=== PATIENT | male | born 1940 | race Caucasian/White ===

== ENCOUNTER → 2016-07-11 | Outpatient (CLI) | payer OTHER ==
[~2016-07-11] MED LIST: ACET-1138 PO; AMLO2.5T PO; ASCA500 PO; ASPEC81 PO; ATOR-24 PO; CHOL100010 PO; CLB200 PO; CLC100 PO; FERR1TAB61 PO; GLUC1CAP33 PO; GLUCTAB7 PO; HYDR-5688 PO; NXM/40 PO; OMEG10007 PO; OXYSR10 PO; POTA1TAB PO; RAMI10CA PO; RXC5 PO; SENN-63 PO; SIMV40TA4 PO
== END | disposition home or self-care (01) ==
LOC: C.PATHSPEC 17:33
PROVIDERS: ATTEND Plastic Surgery
DX: B07.9 Viral wart, unspecified (principal)

== ENCOUNTER 2016-07-18 06:14 | Inpatient (IN) | payer OTHER ==
--- NOTE | 2016-07-17 08:27 | History and Physical ---
History & Physical Date Jul 17, 2016. Chief Complaint Right Knee Pain History of Present Illness Mr Abel is a 75 year old male who complains of right knee pain. He presents with pain on the right side. He states that the symptoms have been acute non- traumatic and began 2 months ago. The symptoms occur intermittently. The problem is unchanged. Currently the patient states that the symptoms are moderate-severe. The pain is described as sharp and shooting. The symptoms occur with mild activity. The patient is experiencing pain in the following location: medial aspect on the right side. The symptoms are aggravated by descending stairs, ascending stairs and walking. In addition to right knee pain the patient is also experiencing limping. Patient had cortisone injection last month that didn't help. Past Medical/Surgical History PAST MEDICAL HISTORY Hypertension GERD h/o skin cancer SURGICAL HISTORY Prostate Surgery knee arthroscopy Additional History Kidney Disease: No Hypertension: Yes Bleeding Tendencies: No Infectious Diseases: No Allergies Coded Allergies: Lisinopril (Unverified Allergy, Unknown, per PCP records , 02/01/16) Moxifloxacin (Unverified Allergy, Unknown, per PCP records , 02/01/16) Valsartan (Unverified Allergy, Unknown, per PCP records , 02/01/16) Home Medications Scheduled Amlodipine (Norvasc), 2.5 MG PO QAM Ascorbic Acid (Vitamin C *), 1,000 MG PO QAM Cholecalciferol (Vitamin D), 1,000 INTER.UNIT PO QAM Esomeprazole Magnesium (Nexium), 40 MG PO QAM Ferrous Sulfate (Iron), 1 TAB PO QAM Fish Oil ([place]-3), 2 CAP PO QAM Potassium Gluconate (Potassium Gluconate), 1 TAB PO QAM Ramipril (Ramipril), 1 CAP PO QAM Simvastatin (Zocor), 40 MG PO QPM Scheduled PRN Hydrocodone/Acetaminophen 5MG/325MG ([place] 5MG/325MG), 1-2 TABLETS PO q4-6 hours PRN for Pain Physical Examination Skin: warm/dry, no rash Eyes: normal inspection, EOMI, sclerae normal ENT: normal ENT inspection, pharynx normal Neck: supple, no adenopathy, trachea midline Respiratory/Chest: lungs clear, normal breath sounds, no respiratory distress Cardiovascular: regular rate, rhythm, no edema, no murmur Abdomen / GI: normal bowel sounds, non tender Addiitonal Comments: Ankle ROM R * Active ROM - Factors: normal, Description: active pain free range of motion. Passive ROM - Factors: normal, Description: passive pain free range of motion. Hip ROM R * Active ROM - Factors: normal, Description: active pain free range of motion. Passive ROM - Factors: normal, Description: passive pain free range of motion. Knee ROM R * Active ROM - Flexion: 100 degrees, Extension: 5 degrees, Factors: pain, Description: Active painful ROM. Strength LE Normal Strength Description - Normal lower extremity: Bilateral. Knee * Inspection - Gait: Limp. Alignment - Right: neutral. Ecchymosis - Right: negative. Effusion - Right: mild. Swelling - Right: mild. Maximum tenderness - Right: Medial Joint Line. Patella exam - Crepitation - Right: mild. Patella position - Right: neutral. [facility]'s - lateral - Right: Positive. [facility]'s - medial - Right: Positive. Knee Normal Inspection - Atrophy - Right: Absent. Skin - Right: Normal. Patella exam - Apprehension - Right: Negative. Q-angle - Right: Normal. Posterior drawer - Right: Negative. Anterior drawer - Right: Negative. Valgus stress - Right: Negative. Varus stress - Right: Negative. Extensor lag - Right: Normal. Neurovascular LE Normal Neurovascular examination including reflexes, sensation , and pulses is within normal limits. RIGHT KNEE XRAYS Xrays reviewed of the right knee showing findings consistent with degenerative joint disease including joint space narrowing, subchondral sclerosis and peripheral osteophyte formation. no acute bony pathology, overall varus alignment. Impression: degenerative joint disease of the right knee with no acute bony pathology noted. Diagnosis 1. Right knee osteoarthritis 2. Hypertension 3. h/o skin cancer Plan of Treatment Further care discussed with patient and at this point in time has failed conservative measures and would like to proceed with a right total knee replacement. Plan on discharge will be home with home physical therapy. DVT prophalaxis with TEDs, SCDs and will also place on aspirin 81 mg p.o. b.i.d. for a month postop. Patient will have follow up appointment in our office two weeks post op for staple/suture removal and re-evaluation. Patient otherwise has no other questions or concerns.
[2016-07-17 08:33] VITALS: BMI 28.0
--- NOTE | 2016-07-17 08:58 | PAT Medication Instructions ---
Service Date Jul 17, 2016. Current Home Medication List Amlodipine (Norvasc), 2.5 MG PO QAM Ascorbic Acid (Vitamin C *), 500 MG PO BID Atorvastatin (Lipitor), 40 MG PO NOON Cholecalciferol (Vitamin D), 1,000 INTER.UNIT PO QAM Esomeprazole Magnesium (Nexium), 40 MG PO QAM Fish Oil ([place]-3), 1 CAP PO QAM Glucosamine-Chondroitin (Glucosamine & Chondroitin 500-400 mg), 1 TAB PO QPM Ranfnaceawq-Iseqnlpjzqa-Tfy C- (Glucosamine Chondroitin), 2 TAB PO QAM Potassium Gluconate (Potassium Gluconate), 1 TAB PO QAM Ramipril (Ramipril), 1 CAP PO QAM Medication Instructions For Your Scheduled Surgery Atorvastatin (Lipitor), 40 MG PO NOON (continue as usual) - Hold the following medications the morning of surgery: Ramipril (Ramipril), 1 CAP PO QAM Potassium Gluconate (Potassium Gluconate), 1 TAB PO QAM Cholecalciferol (Vitamin D), 1,000 INTER.UNIT PO QAM Ascorbic Acid (Vitamin C *), 500 MG PO BID Fish Oil ([place]idge-3), 1 CAP PO QAM Vksumiojdlu-Iydzvxggsly-Wsc C- (Glucosamine Chondroitin), 2 TAB PO QAM - Take the following medications the morning of surgery with a sip of water: Esomeprazole Magnesium (Nexium), 40 MG PO QAM Amlodipine (Norvasc), 2.5 MG PO QAM - Hold the following medications as scheduled the night before surgery: Glucosamine-Chondroitin (Glucosamine & Chondroitin 500-400 mg), 1 TAB PO QPM - Take the following medications as scheduled the night before surgery: Ascorbic Acid (Vitamin C *), 500 MG PO BID If you have any questions please call us at [phone] (Mckenna May PA-C) or [phone] or [phone]
[2016-07-17 09:03] LABS: URINE APPEARANCE CLEAR (CLEAR); URINE BILIRUBIN NEG (NEG); URINE COLOR YELLOW; URINE NITRITE NEG (NEG); URINE SPECIFIC GRAVITY 1.016 (1.000-1.030); UROBILINOGEN NEG (NEG)
[2016-07-17 09:07] LABS: PROTHROMBIN TIME (PATIENT) 11.1 SECONDS (9.0-12.0)
[2016-07-17 09:09] LABS: BASO % 0.3 %; BASO ABS # 0.03 K/uL (0-0.2); COMPLETE YES; EOS % 2.6 %; HEMATOCRIT 47.7 % (42-52); IG% 0.2 %; LYMPH % 27.8 %; LYMPH ABS # 2.45 K/uL (1.2-3.4); MEAN CELL VOLUME 90.3 fL (80-100); MEAN CORPUSCULAR HEMOGLOBIN 31.3 pg (25-34); MEAN CORPUSCULAR HGB CONC 34.6 g/dl (32-36); MEAN PLATELET VOLUME 10.2 fL (7.4-10.4); MONO % 9.3 %; NEUT % 59.8 %; PLATELET COUNT 281 K/uL (130-400); RED BLOOD COUNT 5.28 M/uL (4.7-6.1); WHITE BLOOD COUNT 8.81 K/uL (4.8-10.8)
[2016-07-17 09:10] LABS: MANUAL MICROSCOPIC REQUIRED? NO; REVIEW REQ? NO
--- NOTE | 2016-07-17 09:21 | DIAGNOSTIC IMAGING REPORT ---
CHEST 2 VIEWS ROUTINE HISTORY: Preop. COMPARISON: Chest 05/25/2010. FINDINGS: The lungs are clear. Cardiac silhouette is normal in size. No pleural effusions. No pneumothorax. IMPRESSION: No acute process. Electronically signed by: Lorenzo Cortez M.D. 07/17/2016 9:20 AM Dictated Date/Time: 07/17/2016 9:17 AM
[2016-07-17 09:37] LABS: BUN/CREATININE RATIO 17.5 (10-20); CALCIUM 8.8 mg/dl (8.5-10.1); CREATININE 0.93 mg/dl (0.60-1.40); POTASSIUM 3.9 mmol/L (3.5-5.1)
[2016-07-17 09:39] LABS: ESTIMATED AVERAGE GLUCOSE 114 mg/dl; HA1C FLAG Normal (Normal)
[2016-07-18] VITALS (7 sets, daily range): BP systolic 114–159; BP diastolic 67–76; PULSE 79–98; TEMP 36.3–36.7; O2SAT 96–99; Ht 180.3 cm; Wt 93.0 kg
[~2016-07-18] VITALS: Ht 180.3 cm; Wt 93.0 kg
[~2016-07-18 06:14] MED LIST changes: -ACET-1138 PO; -ASPEC81 PO; -CLB200 PO; -CLC100 PO; -FERR1TAB61 PO; -HYDR-5688 PO; +LACTATED RINGER'S 1000ML 1,000 ML IV SCH; +LACTATED RINGER'S 1000ML 500 ML IV ONE; -OXYSR10 PO; +ROPIVACAINE 5MG/ML 30 ML 150 MG, BUPIVACAINE/EPINEPHR 0.5% MPF 30 ML, KETOROLAC TROMETH... INFIL SCH; -RXC5 PO; -SENN-63 PO; -SIMV40TA4 PO
[2016-07-18] MEDS ORDERED: NURSING VERBAL MED ORDER STA ×2 (06:47→06:57)
[2016-07-18] MEDS ORDERED: POVIDONE-IODINE OP SOLN 30 ML BTL ONE (06:51)
[2016-07-18] MEDS ORDERED: BACITRACIN 50000 UNIT VIAL ONE (06:51)
[2016-07-18] MEDS ORDERED: MIDAZOLAM HCL 1 MG/ML 2ML VIAL ONE ×2 (07:00)
[2016-07-18] MEDS ORDERED: FENTANYL CITRATE INJ 50 MCG/1 ML 2 ML VIAL ONE (07:00)
--- NOTE | 2016-07-18 07:14 | History & Physical Bridge Note ---
H&P Re-Evaluation Bridge Note: I have examined the patient, reviewed the History & Physical and in the interval since the performance of the History & Physical I have noted the following changes of clinical significance: No changes noted
[2016-07-18] MEDS ORDERED: BUPIVACAINE/EPINEPHRINE 0.25% 1:200,000 30 ML VIAL ONE (07:24)
[2016-07-18] MEDS ORDERED: BUPIVACAINE 0.5 % 5 MG/1 ML PF 10ML VIAL ONE (07:24)
[2016-07-18] MEDS ORDERED: DEXAMETHASONE SOD INJ 4 MG/ML VIAL ONE (07:25)
[2016-07-18] MEDS: TRANEXAMIC ACID INJ 1,000 MG in SODIUM CHLORIDE 0.9% 100ML 100 ML IV SCH ×2 (07:30→07:43)
[2016-07-18] MEDS ORDERED: CEFAZOLIN IV 2,000 MG/60 ML D5W IV ONE (07:32)
[2016-07-18] MEDS ORDERED: PROPOFOL IV EMULSION 10 MG/ML 20 ML VIAL IV ONE (08:38)
[2016-07-18] MEDS ORDERED: LIDOCAINE HCL 2% 2 ML VIAL (20MG/ML) ONE (08:38)
[2016-07-18] MEDS ORDERED: METOPROLOL TARTRATE 1 MG/ML VIAL ONE (08:38)
[2016-07-18] MEDS ORDERED: PHENYLEPHRINE 100MCG/ML 5ML SYR ONE (08:39)
--- NOTE | 2016-07-18 09:38 | [facility] Post Operative Brief Note ---
Immediate Operative Summary Operative Date Jul 18, 2016. Pre-Operative Diagnosis Right knee osteoarthritis Post-Operative Diagnosis Same as preop Procedure(s) Performed Right total knee arthroplasty Surgeon Dr. Hernandes Industrial Radiographer Surgeon(s) Nathan Zaldivar PA-C Estimated Blood Loss 10 cc Findings severe djd rt knee Specimens A: right knee bone and tissue Complication(s) None Disposition Recovery Room / PACU
[2016-07-18] MEDS ORDERED: FENTANYL CITRATE INJ 50 MCG/1 ML 2 ML VIAL IV PRN (10:00)
[2016-07-18] MEDS ORDERED: ONDANSETRON INJ 2 MG/ML 2 ML VIAL IV PRN ×2 (10:00→10:15)
[2016-07-18] MEDS ORDERED: ATROPINE SULFATE 0.1 MG/ML 5ML SYR IV PRN (10:00)
[2016-07-18] MEDS ORDERED: EpHEDrine SULFATE INJ 50 MG/ML AMP IV PRN (10:00)
[2016-07-18] MEDS ORDERED: MoRPHine SULFATE 2 MG/ML CARP IV PRN (10:15)
[2016-07-18] MEDS ORDERED: ALUMINUM/MAGNESIUM/SIMETH (MAALOX MAX) 30 ML UDC PO PRN (10:15)
[2016-07-18] MEDS ORDERED: DiphenhydrAMINE HCL 50 MG/ML VIAL IV PRN (10:15)
[2016-07-18] MEDS ORDERED: BISACODYL 10 MG SUPP PR PRN (10:15)
[2016-07-18] MEDS ORDERED: ZOLPIDEM TARTRATE 5 MG TAB PO PRN (10:15)
[2016-07-18] MEDS ORDERED: MAGNESIUM HYDROXIDE SUSP 30 ML UDC PO PRN (10:15)
[2016-07-18] MEDS ORDERED: TAMSULOSIN HCL 0.4 MG CAP PO PRN (10:15)
--- NOTE | 2016-07-18 10:46 | OPERATIVE REPORT ---
DATE OF OPERATION: 07/18/2016 PREOPERATIVE DIAGNOSIS: Severe end-stage tricompartmental degenerative joint disease, right knee. POSTOPERATIVE DIAGNOSIS: Same. PROCEDURE: Right total knee arthroplasty using Journey II nonblock total knee arthroplasty size 6 femur, 5 tibia, 11 poly, and 35 oval patella. SURGEON: Dr. Hernandes. DISTRICT GAUGER: Chidi Zaldivar PA-C, who was necessary for prepping, draping, retraction, wound closure of deep fascia, subQ and skin and was necessary for the case. ESTIMATED BLOOD LOSS: 10 mL. COMPLICATIONS: None. TOURNIQUET TIME: 40 minutes. HISTORY OF PRESENT ILLNESS: The patient is a very pleasant 75-year-old white male who presents with severe endstage DJD about his right knee. He has been nonresponsive to conservative therapy including physical therapy, anti-inflammatories, relative rest, activity modification, viscosupplementation, corticosteroid injections and presents after thorough discussion of risks, complications for total knee arthroplasty. PROCEDURE: The patient was properly prepped and draped in supine position for total knee arthroplasty after identifying the appropriate surgical site. An anterior midline incision was made through the subcutaneous tissues down to the region of the extensor mechanism. A medial parapatellar incision was subsequently made. Meticulous hemostasis was obtained and performed at all times. The patella having been subluxed lateralward, medial and lateral meniscal remnants were excised. The patellar cut was then initially made and was sized to the appropriate size. After subluxing the tibia forward the appropriate meniscal fragments having been removed the distal femur was then cut first utilizing a Dong \T\ Nephew block. The distal femoral cuts and chamfer cuts were all made under direct visualization and the proximal tibial osteotomy cut was also made utilizing Dong \T\ Nephew blocks and checked with an extramedullary guide. The appropriate trial components on the femur and tibia were placed. Appropriate trial spacers were used to check flexion and extension gaps. With flexion and extension gaps being equal, the components were then subsequently after thorough irrigation and debridement lavage components were then subsequently cemented in the following order: femur, tibia and patella. Exparel was used for intraoperative anesthesia, the medial parapatellar incision was closed utilizing #1 Vicryl, subQ was closed with 2-0 Vicryl, skin was closed with skin clips. A sterile compression dressing was placed. The patient was taken to recovery room in stable condition. Due to the complex nature of the procedure, the entire surgery was performed with the operational assistance of Chidi Zaldivar PA-C. The life science research assistant, under direct supervision, was involved in the actual performance of all aspects of the surgical procedure including hemostasis, tissue retraction and incision, instrument management, patient positioning, and wound closure. I attest to the content of the Intraoperative Record and any orders documented therein. Any exceptio ns are noted below.
--- NOTE | 2016-07-18 11:19 | DIAGNOSTIC IMAGING REPORT ---
RIGHT KNEE 1 OR 2 VIEWS ROUTINE CLINICAL HISTORY: AP/LATERAL IN PACU RIGHT KNEE Right joint replacement COMPARISON: None. DISCUSSION: Evidence for a total right knee replacement. Good contact between prosthetic and underlying bone. Surgical drains are in position. Expected postoperative soft tissue change IMPRESSION: Total right knee replacement in good position Electronically signed by: Shar Snow M.D. 07/18/2016 11:18 AM Dictated Date/Time: 07/18/2016 11:17 AM
--- NOTE | 2016-07-18 11:31 | Anesthesiology Progress Note ---
Anesthesia Post Op Note Date & Time Jul 18, 2016 at 11:31 Vital Signs Pain Intensity: 0 Vital Signs Past 12 Hours Date Time Temp Pulse Resp B/P Pulse Ox O2 Delivery O2 Flow Rate FiO2 07/18/16 11:10 36.5 92 16 131/70 98 Nasal Cannula 3 07/18/16 10:55 36.5 90 16 123/67 98 Nasal Cannula 3 07/18/16 10:40 36.5 91 16 130/75 97 Nasal Cannula 3 07/18/16 10:30 90 16 122/67 97 Nasal Cannula 3 07/18/16 10:20 93 16 114/66 97 Nasal Cannula 3 07/18/16 10:10 36.3 96 16 100/58 96 Nasal Cannula 3 07/18/16 06:59 36.7 94 20 155/69 98 Room Air Notes Mental Status: alert / awake / arousable, participated in evaluation Pt Amnestic to Procedure: Yes Nausea / Vomiting: adequately controlled Pain: adequately controlled Airway Patency, RR, SpO2: stable & adequate BP & HR: stable & adequate Hydration State: stable & adequate Neuraxial Anesthesia: was administered, sensory block is resolving Anesthetic Complications: no major complications apparent
[2016-07-18] MEDS ORDERED: MoRPHine SULFATE 4 MG/ML 1 ML CARP\\VIAL IV PRN (12:00)
[2016-07-18] MEDS ORDERED: MoRPHine SULFATE 10 MG/ML CARP/VIAL IV PRN (12:00)
--- NOTE | 2016-07-18 12:49 | Medical Consult ---
Consultation Date of Consultation: Jul 18, 2016. Attending Physician: Marck Hernandes D.O. Reason for Consultation: Medical management History of Present Illness This is a 75 yo M with PMHx of HTN admitted for R total knee arthroplasty completed by Dr. Hernandes on 07/18/16. Medicine was consulted for management of comorbidities. The patient is in bed with at bedside, he denies acute complaints and reports pain is well managed. He still has some numbness in his left foot but states it is improving. Last BM was yesterday, reports not yet passing gas, is hungry. Denies chest pain, palpitations, flutter, sob, abd pain , lightheadedness or dizziness. Social History Smoking Status: Never Smoker Drug Use: none Marital Status: Housing Status: lives with family Occupation Status: retired Allergies Coded Allergies: Lisinopril (Verified Allergy, Unknown, per PCP records-pt not aware, ) Moxifloxacin (Verified Allergy, Unknown, per PCP records -pt not aware, ) Valsartan (Verified Allergy, Unknown, per PCP records -pt not aware, ) Current Inpatient Medications Current Inpatient Medications Medications (Trade) Dose Ordered Sig/Ced Route Start Time Stop Time Status Last Admin Dose Admin Tranexamic Acid 1000 mg/Sodium Chloride 110 ml @ 660 mls/hr TODAY@0700,0730 IV 07/18/16 07:00 07/18/16 14:00 07/18/16 07:43 660 MLS/HR Ropivacaine/ Bupivacaine HCl/ Epinephrine Bitart/Ketorolac Tromethamine/ Dexamethasone Sodium Phosphate/ Ketamine HCl/ Clonidine/Sodium Chloride/Empty Bag (Naropin Inj 5MG/ Ml 30ML/ Sensorcaine/ Epinephrine 0.5% Mpf 1:200,000/ Toradol Inj/ Decadron Inj/ Ketalar Steri-Vial I... 93.2 ml @ 0 mls/hr TODAY@06 INFIL 07/18/16 06:00 07/18/16 18:00 07/18/16 09:00 1 MLS/HR Fentanyl Citrate (Fentanyl Inj) 50 mcg Q5M PRN IV 07/18/16 10:00 07/18/16 15:00 Ondansetron HCl (Zofran Inj) 4 mg ONE PRN IV 07/18/16 10:00 07/18/16 15:00 Ephedrine Sulfate (EpHEDrine SULFATE INJ) 5 mg Q5M PRN IV 07/18/16 10:00 07/18/16 15:00 Atropine Sulfate (Atropine Sulfate 0.1MG/Ml Inj) 0.5 mg Q1M PRN IV 07/18/16 10:00 07/18/16 15:00 Amlodipine Besylate (Norvasc Tab) 2.5 mg QAM PO 07/19/16 09:00 08/18/16 08:59 Atorvastatin Calcium (Lipitor Tab) 40 mg QAM PO 07/19/16 09:00 08/18/16 08:59 Cholecalciferol (Vitamin D Tab) 1,000 inter.unit QAM PO 07/19/16 09:00 08/18/16 08:59 Enalapril Maleate (Vasotec Tab) 40 mg QAM PO 07/19/16 09:00 08/18/16 08:59 Morphine Sulfate 2 mg 2 mg Q4HWA PRN IV 07/18/16 10:15 08/01/16 10:14 Potassium Chloride/Dextrose/ Sod Cl 1,000 ml @ 100 mls/hr Q10H IV 07/18/16 12:15 07/19/16 10:10 Cefazolin Sodium/ Dextrose (Ancef Iv/D5 50ml) 60 ml @ 100 mls/hr Q8H IV 07/18/16 16:00 07/19/16 00:35 Ketorolac Tromethamine (Toradol Inj) 15 mg Q6H IV. 07/18/16 12:00 07/19/16 10:14 Celecoxib (CeleBREX CAP) 200 mg BID PO 07/19/16 21:00 08/18/16 20:59 Oxycodone HCl (Roxicodone Immediate Rel Tab) 1 TABLET FOR PAIN RATING... Q4H PRN PO 07/18/16 10:15 08/01/16 10:14 Oxycodone HCl (Oxycontin Tab) 10 mg Q12 PO 07/18/16 21:00 08/01/16 20:59 Acetaminophen (Tylenol Tab) 1,000 mg Q8H PO 07/18/16 14:00 08/17/16 10:14 Magnesium Hydroxide (Milk Of Magnesia Susp) 30 ml Q6H PRN PO 07/18/16 10:15 08/17/16 10:14 Bisacodyl (Dulcolax Supp) 10 mg DAILY PRN AK 07/18/16 10:15 08/17/16 10:14 Senna (Senokot Tab) 17.2 mg HS PO 07/18/16 21:00 08/17/16 20:59 Docusate Sodium (coLACE CAP) 100 mg BID PO 07/18/16 21:00 08/17/16 20:59 Diphenhydramine HCl (Benadryl Inj) 25 mg Q8H PRN IV 07/18/16 10:15 08/17/16 10:14 Al Hydrox/Mg Hydrox/Simethicone (Maalox Max Susp) 15 ml Q4H PRN PO 07/18/16 10:15 08/17/16 10:14 Zolpidem Tartrate (Ambien Tab) 5 mg HSZ PRN PO 07/18/16 10:15 08/17/16 10:14 Multivitamins (Multivitamin Tab) 1 tab QAM PO 07/19/16 09:00 08/18/16 08:59 Ondansetron HCl (Zofran Inj) 4 mg Q6H PRN IV 07/18/16 10:15 08/17/16 10:14 Ferrous Gluconate (Ferrous Gluconate Tab) 324 mg TIDM PO 07/18/16 12:30 08/17/16 12:29 Pantoprazole Sodium (Protonix Tab) 40 mg QAM PO 07/19/16 09:00 08/18/16 08:59 Tamsulosin HCl (Flomax Cap) 0.4 mg QAM PRN PO 07/18/16 10:15 08/17/16 10:14 Aspirin (Ecotrin Tab) 81 mg BID PO 07/18/16 21:00 08/17/16 20:59 Morphine Sulfate (MoRPHine SULFATE INJ) 4 mg Q4HWA PRN IV 07/18/16 12:00 08/01/16 11:59 Morphine Sulfate (MoRPHine SULFATE INJ) 6 mg Q4HWA PRN IV 07/18/16 12:00 08/01/16 11:59 Review of Systems Constitutional: No chills, No fever, No sweats Eyes: No discharge ENT: No problem reported Respiratory: No cough, No dyspnea on exertion, No shortness of breath Cardiovascular: No chest pain, No palpitations Abdomen: No constipation, No diarrhea, No nausea, No pain, No vomiting Musculoskeletal: No calf pain, No joint pain, No swelling Genitourinary - Male: No dysuria Neurologic: + numbness/tingling (minimal left toes) Endocrine: No fatigue Integumentary: No itch, No rash Physical Exam Date Time Temp Pulse Resp B/P Pulse Ox O2 Delivery O2 Flow Rate FiO2 07/18/16 11:50 98 Nasal Cannula 2.0 07/18/16 11:10 36.5 92 16 131/70 98 Nasal Cannula 3 07/18/16 10:55 36.5 90 16 123/67 98 Nasal Cannula 3 07/18/16 10:40 36.5 91 16 130/75 97 Nasal Cannula 3 07/18/16 10:30 90 16 122/67 97 Nasal Cannula 3 07/18/16 10:20 93 16 114/66 97 Nasal Cannula 3 07/18/16 10:20 98 Nasal Cannula 2.0 07/18/16 10:10 36.3 96 16 100/58 96 Nasal Cannula 3 07/18/16 06:59 36.7 94 20 155/69 98 Room Air General Appearance: WD/WN, no apparent distress Head: normocephalic, atraumatic Eyes: PERRL, EOMI ENT: hearing grossly normal, pharynx normal Neck: supple, no JVD Respiratory/Chest: chest non-tender, lungs clear, no respiratory distress, no accessory muscle use Cardiovascular: regular rate, rhythm, normal peripheral pulses Abdomen/GI: normal bowel sounds, non tender, soft Back: normal inspection, no CVA tenderness Extremities/Musculoskelatal: normal inspection, no calf tenderness, no pedal edema, + pertinent finding (Left leg wrapped with MELISA wrap, ice pack, elevated. ) Neurologic/Psych: alert, normal mood/affect, oriented x 3 Skin: normal color, warm/dry Laboratory Results Last 24 Hours Test 07/18/16 06:37 Bedside Glucose 117 mg/dl Assessment & Plan This is a 75 yo M with PMHx of HTN admitted for R total knee arthroplasty completed by Dr. Hernandes on 07/18/16. Medicine was consulted for management of comorbidities. S/p R TKA by Dr. Hernandes - Pain management, anticoagulation ( asa 81 mg BID) per the primary service - PT/OT on board - Elevate, ice, and rest for the left knee - Will continue bowel regimen while on narcotics for pain HTN - Cont amlodipine 2.5 mg daily, vasotec 40 mg daily, ramipril 10 mg daily GERD - Cont pantoprazole daily for now, takes nexium at home which we will resume upon discharge Hypercholesterolemia - Cont atorvastatin 40 mg daily DVT ppx: asa 81 mg BID, SCDs, teds on non-affected leg CODE STATUS: FULL CODE Disposition: From home, d/c when medically stable PA Physician Supervision Note: I interviewed and examined the patient. Discussed with Elisa Dutta PAC and agree with findings and plan as documented in the note. Any exceptions or clarifications are listed here: pt is not on both vasotec and ramipril, likely vasotec is pharmacy substitute for ramipril, both will be held post op day one Pt doing well pain control is acceptable vss car reg, lungs are clear hold melisa i post op to mitigate orthostatic hypotension using hydralazine for bp control prn Documented By: Marck Alston
[2016-07-18] MEDS: D5W AND 1/2NSS + 20MEQ KCL 1,000 ML IV SCH ×2 (12:52→21:48)
[2016-07-18] MEDS: KETOROLAC TROMETHAMINE 15 MG/ML VIAL IV. SCH ×3 (12:53→23:23)
[2016-07-18] MEDS: FERROUS GLUCONATE 324 MG TAB PO SCH ×2 (12:58→17:44)
[2016-07-18] MEDS: ACETAMINOPHEN 500 MG TAB PO SCH ×2 (13:50→21:48)
[2016-07-18] MEDS ORDERED: HydrALAZINE HCL 20 MG/ML VIAL IV PRN (15:30)
[2016-07-18] MEDS: CEFAZOLIN IV 2,000 MG in DEXTROSE 5% 50ML 50 ML IV SCH ×2 (15:53→23:22)
[2016-07-18] MEDS: DOCUSATE SODIUM 100 MG CAP PO SCH (20:51)
[2016-07-18] MEDS: ASPIRIN 81 MG ECTAB PO SCH (20:51)
[2016-07-18] MEDS: OXYCODONE HCL 10 MG TABCR (OXYCONTIN) PO SCH (20:51)
[2016-07-18] MEDS: SENNA 8.6 MG TAB PO SCH (20:51)
[2016-07-19 03:27] VITALS: BP 132/72; PULSE 88; TEMP 36.3; O2SAT 98
[2016-07-19] MEDS: KETOROLAC TROMETHAMINE 15 MG/ML VIAL IV. SCH (05:34)
[2016-07-19] MEDS: ACETAMINOPHEN 500 MG TAB PO SCH ×3 (05:37→22:04)
[2016-07-19 06:52] LABS: HEMATOCRIT 39.6 % (42-52); MEAN CELL VOLUME 88.2 fL (80-100); MEAN CORPUSCULAR HEMOGLOBIN 30.7 pg (25-34); MEAN CORPUSCULAR HGB CONC 34.8 g/dl (32-36); PLATELET COUNT 276 K/uL (130-400); RED BLOOD COUNT 4.49 M/uL (4.7-6.1); WHITE BLOOD COUNT 21.73 K/uL (4.8-10.8)
--- NOTE | 2016-07-19 06:53 | Orthopedic Progress Note ---
Orthopedic Progress Note Date of Service Jul 19, 2016. Subjective Post OP Day: 1 (right TKA) Reports: feeling well, pain controlled w PO medications, Denies: SOB, calf pain , chest pain, complaints, light headedness, nausea / vomiting Objective calves soft nontender, N/V intact, capillary refill less than 2 sec., dressing C /D/I, A&O x3, toes mobile, hemovac drainage (175cc/8 hours) Date Time Temp Pulse Resp B/P Pulse Ox O2 Delivery O2 Flow Rate FiO2 07/19/16 03:27 36.3 88 16 132/72 98 Room Air 07/18/16 23:50 36.6 93 16 115/67 97 Room Air 07/18/16 19:30 Room Air 07/18/16 15:38 36.3 79 16 119/68 96 Room Air 07/18/16 14:37 90 16 159/76 97 Room Air 07/18/16 12:20 87 16 114/72 99 2.0 07/18/16 11:50 36.4 86 16 114/72 99 2.0 07/18/16 11:50 98 Nasal Cannula 2.0 07/18/16 11:10 36.5 92 16 131/70 98 Nasal Cannula 3 07/18/16 10:55 36.5 90 16 123/67 98 Nasal Cannula 3 07/18/16 10:40 36.5 91 16 130/75 97 Nasal Cannula 3 07/18/16 10:30 90 16 122/67 97 Nasal Cannula 3 07/18/16 10:20 93 16 114/66 97 Nasal Cannula 3 07/18/16 10:20 98 Nasal Cannula 2.0 07/18/16 10:10 36.3 96 16 100/58 96 Nasal Cannula 3 07/18/16 06:59 36.7 94 20 155/69 98 Room Air Laboratory Results 24 Hours: Test 07/19/16 05:45 Assessment & Plan Assessment: POD #1 s/p Right TKA -PT/OT -dvt proph with JIM/SCD/ASA -plan for d/c home with Home PT, likely tomorrow Hypertension GERD h/o skin cancer Discharge Planning Discharge Planning: home with home health DVT Prophylaxis: TEDs, SCDs, ASA Therapy: Physical Therapy
[2016-07-19 07:25] LABS: BUN/CREATININE RATIO 16.6 (10-20); CALCIUM 8.4 mg/dl (8.5-10.1); POTASSIUM 3.9 mmol/L (3.5-5.1)
--- NOTE | 2016-07-19 07:48 | Anesthesiology Progress Note ---
Anesthesia Post Op Note Date & Time Jul 19, 2016 at 07:48 Vital Signs Pain Intensity: 0.0 Vital Signs Past 12 Hours Date Time Temp Pulse Resp B/P Pulse Ox O2 Delivery O2 Flow Rate FiO2 07/19/16 03:27 36.3 88 16 132/72 98 Room Air 07/18/16 23:50 36.6 93 16 115/67 97 Room Air Notes Mental Status: alert / awake / arousable, participated in evaluation Pt Amnestic to Procedure: Yes Nausea / Vomiting: adequately controlled Pain: adequately controlled Airway Patency, RR, SpO2: stable & adequate BP & HR: stable & adequate Hydration State: stable & adequate Neuraxial Anesthesia: sensory block resolved Anesthetic Complications: no major complications apparent
--- NOTE | 2016-07-19 07:50 | Hospitalist Progress Note ---
Hospitalist Progress Note Date of Service Jul 19, 2016. (Elisa Dutta PA-C) Subjective Pt evaluation today including: conversation w/ patient, conversation w/ family , physical exam, chart review, lab review, review of studies, review of inpatient medication list Pain: Mild PO Intake: Good Voiding: no voiding problems The patient was seen and examined this morning. Pt reports doing well, he was up walking several laps with PT this morning. OT is at bedside. He is tolerating diet, had a BM this morning. No other acute complaints. All Other Systems: Reviewed and Negative (Elisa Dutta PA-C) Objective Vital Signs Date Time Temp Pulse Resp B/P Pulse Ox O2 Delivery O2 Flow Rate FiO2 07/19/16 03:27 36.3 88 16 132/72 98 Room Air 07/18/16 23:50 36.6 93 16 115/67 97 Room Air 07/18/16 19:30 Room Air 07/18/16 15:38 36.3 79 16 119/68 96 Room Air 07/18/16 14:37 90 16 159/76 97 Room Air 07/18/16 12:20 87 16 114/72 99 2.0 07/18/16 11:50 36.4 86 16 114/72 99 2.0 07/18/16 11:50 98 Nasal Cannula 2.0 07/18/16 11:10 36.5 92 16 131/70 98 Nasal Cannula 3 07/18/16 10:55 36.5 90 16 123/67 98 Nasal Cannula 3 07/18/16 10:40 36.5 91 16 130/75 97 Nasal Cannula 3 07/18/16 10:30 90 16 122/67 97 Nasal Cannula 3 07/18/16 10:20 93 16 114/66 97 Nasal Cannula 3 07/18/16 10:20 98 Nasal Cannula 2.0 07/18/16 10:10 36.3 96 16 100/58 96 Nasal Cannula 3 (Elisa Dutta PA-C) Physical Exam General Appearance: WD/WN, no apparent distress Eyes: PERRL, EOMI ENT: hearing grossly normal, pharynx normal Neck: supple, no JVD Respiratory/Chest: lungs clear, normal breath sounds, no respiratory distress, no accessory muscle use Cardiovascular: regular rate, rhythm, no murmur Abdomen: normal bowel sounds, non tender, soft Extremities: no pedal edema, no calf tenderness, + pertinent finding (Right LE wrapped in MELISA, ice pack in place, sensation to light touch intact distally. ) Neurologic/Psychiatric: alert, normal mood/affect, oriented x 3 Skin: normal color, warm/dry (Elisa Dutta PA-C) Laboratory Results Last 24 Hours Test 07/19/16 05:45 White Blood Count 21.73 K/uL Red Blood Count 4.49 M/uL Hemoglobin 13.8 g/dL Hematocrit 39.6 % Mean Corpuscular Volume 88.2 fL Mean Corpuscular Hemoglobin 30.7 pg Mean Corpuscular Hemoglobin Concent 34.8 g/dl RDW Standard Deviation 41.1 fL RDW Coefficient of Variation 12.8 % Platelet Count 276 K/uL Mean Platelet Volume 10.0 fL Sodium Level 139 mmol/L Potassium Level 3.9 mmol/L Chloride Level 107 mmol/L Carbon Dioxide Level 22 mmol/L Anion Gap 10.0 mmol/L Blood Urea Nitrogen 17 mg/dl Creatinine 1.00 mg/dl Est Creatinine Clear Calc Drug Dose 72.1 ml/min Estimated GFR () 83.8 Estimated GFR (Non- 72.3 BUN/Creatinine Ratio 16.6 Random Glucose 130 mg/dl Calcium Level 8.4 mg/dl (Elisa Dutta PA-C) Assessment and Plan This is a 75 yo M with PMHx of HTN admitted for R total knee arthroplasty completed by Dr. Hernandes on 07/18/16. Medicine was consulted for management of comorbidities. S/p R TKA by Dr. Hernandes - POD #1, Pain management, anticoagulation ( asa 81 mg BID) per the primary service - PT/OT on board - Elevate, ice, and rest for the left knee - WBC elevated to 21.7 K but likely due to steriods given preop. Will expect this to trend downward. Follow am labs. - Afebrile, no acute pain or complaints, normotensive, few readings of tachycardia this morning - will follow. - Will continue bowel regimen while on narcotics for pain HTN - Cont amlodipine 2.5 mg daily, vasotec 40 mg daily, ramipril 10 mg daily GERD - Cont pantoprazole daily for now, takes nexium at home which we will resume upon discharge Hypercholesterolemia - Cont atorvastatin 40 mg daily DVT ppx: asa 81 mg BID, SCDs, teds on non-affected leg CODE STATUS: FULL CODE Disposition: From home, d/c as per primary service, medically stable. (Elisa Dutta, KENDELL) PA Physician Supervision Note: I interviewed and examined the patient. Discussed with Elisa Dutta PAC and agree with findings and plan as documented in the note. Any exceptions or clarifications are listed here: none Pt doing well pain control is very good anticipates discharge in one day vss some systolic bp 140's car reg, lungs are clear continue to hold melisa i post op using hydralazine for bp control prn resume ramipril at discharge Documented By: Marck Alston (Marck Alston M.D.)
[2016-07-19 08:23] VITALS: BP 142/82; PULSE 100; TEMP 36.4; O2SAT 98
[2016-07-19] MEDS: DOCUSATE SODIUM 100 MG CAP PO SCH ×2 (08:47→22:07)
[2016-07-19] MEDS: FERROUS GLUCONATE 324 MG TAB PO SCH ×3 (08:47→18:06)
[2016-07-19] MEDS: ASPIRIN 81 MG ECTAB PO SCH ×2 (08:48→22:07)
[2016-07-19] MEDS: ATORVASTATIN 40 MG TAB PO SCH (08:48)
[2016-07-19] MEDS: MULTIVITAMIN TAB PO SCH (08:52)
[2016-07-19] MEDS: OXYCODONE HCL 10 MG TABCR (OXYCONTIN) PO SCH ×2 (08:53→21:00)
[2016-07-19] MEDS: AMLODIPINE BESYLATE 5 MG TAB PO SCH (08:53)
[2016-07-19] MEDS: PANTOprazole SOD 40 MG TAB PO SCH (08:54)
[2016-07-19] MEDS: CHOLECALCIFEROL 1000 INTER.UNIT TAB PO SCH (08:54)
[2016-07-19] MEDS: D5W AND 1/2NSS + 20MEQ KCL 1,000 ML IV SCH (08:56)
[2016-07-19] MEDS ORDERED: NON-FORMULARY MEDICATION (Potassium Gluconate 1 TAB) PO SCH (09:00)
[2016-07-19] MEDS ORDERED: ENALAPRIL MALEATE 10 MG TAB PO SCH (09:00)
[2016-07-19 10:35] VITALS: O2SAT 98
--- NOTE | 2016-07-19 12:22 | Discharge Instructions ---
Discharge Instructions Admission Reason for Admission: Unilateral Primary Osteoarthritis Right Knee Discharge Discharge Diagnosis / Problem: Right Total Knee Replacement Discharge Goals Goal(s): Decrease discomfort, Improve function, Increase independence Activity Recommendations Activity Limitations: as noted below Weightbearing Status: Right weightbearing (as tolerated) . Instructions / Follow-Up Instructions / Follow-Up ACTIVITY RECOMMENDATIONS: SELF CARE INSTRUCTIONS AFTER TOTAL KNEE REPLACEMENT A. You may need to continue a physical therapy program after discharge from the hospital. There are several options available to you. Your doctor will assist you in selecting the best one for you. 1. An out-patient facility 2 to 3 times a week for therapy or home therapy. 2. Continue working on all exercises taught to you in the hospital. Your goals should be to increase bending of your knee to 90 degrees and beyond and to fully straighten your knee. B. You may progress at your own pace from walking with a walker or crutches to a cane; then to no assistive devices. C. Make walking a part of your daily routine. Be up as much as comfortable with rest periods throughout the day. Rest with leg elevation is very important. Use the ice wrap frequently for the first 3-4 weeks. D. There are no restrictions on activities. You may ride in a car, shop, participate in aquarium specialist and all social activities. E. Wear the long elastic stockings (JIM hose) 20 hours a day for 2 weeks after surgery. They can be removed several times a day for laundering and for a bath. F. You may shower, no tub baths until cleared by your doctor. SPECIAL CARE INSTRUCTIONS: VERY IMPORTANT TO READ AND REVIEW A. There are a few signs you need to watch for after you are home. Call [facility] if you notice any of the followin. Increased severe knee pain. Some pain is expected especially when you exercise. 2. Increased swelling in your leg or knee; pain or swelling of the calf muscle in either lower leg. 3. Any fluid drainage from the incision. 4. Shortness of breath or chest pain. B. Please call [facility] at if you have any concerns or questions about your operation or recovery. The doctor or his nurse will return your call promptly. C. You must take antibiotics before dental work, bladder, bowel or other surgery. Your doctor will provide you with a permanent care to carry describing this precaution. IMPORTANT: * REMEMBER TO TAKE ASPIRIN, 81 MG, TWICE DAILY FOR 4 WEEKS UNLESS OTHERWISE DIRECTED. THIS IS YOUR BLOOD THINNER. * HIGH RISK PATIENTS MAY BE PRESCRIBED A STRONGER BLOOD THINNER. THIS WILL BE PROVIDED AT DISCHARGE. * CALL IF INCREASED PAIN, REDNESS, DRAINAGE OR FEVER GREATER THAT 101. * WEAR JIM HOSE 20 HOURS PER DAY FOR 2 WEEKS. * YOU MAY HAVE A LARGE BAND-AID LIKE DRESSING (SILVERON). THIS WILL REMAIN ON YOUR INCISION FOR 7 DAYS, THEN CAN BE REMOVED. IF INCISION IS LEAKING THROUGH DRESSING, CALL THE OFFICE . DERMABOND Prineo- This is a mesh tape dressing that is covered with glue. It should remain in place until the incision is properly healed, usually 10-14 days. This dressing is designed to naturally slough off. You may trim the excess mesh tape as it peels off. Incision may be briefly wet in a shower. Dry immediately by blotting with a clean, dry towel. Do not bath or swim until instructed by your doctor. Do not scratch, rub, or pick at the dressing. Do not apply any topical ointments or lotions until dressing is completely removed and/or instructed by your doctor. There may be a small piece of suture material at one end of your incision. Do not pull or trim this. If it is bothersome or catching on clothing, you may cover it with a band-aid. FOLLOW UP VISIT: If appointment is not already scheduled: Please call [facility] to make a follow-up appointment for 2 weeks after your surgery at . Current Hospital Diet Patient's current hospital diet: AHA Diet (Heart Healthy) Discharge Diet Recommended Diet: Regular Diet Procedures Procedures Performed: Right total knee arthroplasty Pending Studies Studies pending at discharge: no Laboratory Results Hemoglobin A1c Test 07/17/16 08:18 Range/Units Estimated Average Glucose 114 mg/dl Hemoglobin A1c 5.6 4.5-5.6 % Lipid Panel Test 04/27/16 07:09 Range/Units Triglycerides Level 126 0-150 mg/dl Cholesterol Level 163 0-200 mg/dl HDL Cholesterol 44 mg/dl Cholesterol/HDL Ratio 3.7 LDL Cholesterol, Calculated 94 mg/dl Medical Emergencies . Who to Call and When: Medical Emergencies: If at any time you feel your situation is an emergency, please call 1 immediately. . Non-Emergent Contact Non-Emergency issues call your: Primary Care Provider, Surgeon . "Provider Documentation" section prepared by Shar Crook. VTE Core Measure Inpt VTE Proph given/why not?: Other Anticoagulation (ASA 81mg po bid x 1 month ), T.E.D. Stockings, SCD's [place] Drug Monitoring Program Search Results: patient reviewed within database, no issues identified
[2016-07-19 12:40] VITALS: BP 148/81; PULSE 93; TEMP 36.5; O2SAT 97
[2016-07-19] MEDS: OXYCODONE HCL IR 5 MG TAB (IMMEDIATE RELEASE) PO PRN ×2 (12:47→18:07)
[2016-07-19 15:09] VITALS: BP 147/75; PULSE 96; TEMP 36.4; O2SAT 97
[2016-07-19] MEDS: SENNA 8.6 MG TAB PO SCH (21:00)
[2016-07-19] MEDS: CeleBREX 200 MG CAP PO SCH (22:04)
[2016-07-19 22:50] VITALS: BP 129/72; PULSE 85; TEMP 36.7; O2SAT 96
[2016-07-20] MEDS: ACETAMINOPHEN 500 MG TAB PO SCH (05:48)
[2016-07-20 06:11] VITALS: BP 143/69; PULSE 92; TEMP 36.6; O2SAT 97
--- NOTE | 2016-07-20 07:12 | Orthopedic Progress Note ---
Orthopedic Progress Note Date of Service Jul 20, 2016. Subjective Post OP Day: 2 Reports: feeling well, pain controlled w PO medications, Denies: SOB, calf pain , chest pain, complaints, light headedness, nausea / vomiting Objective calves soft nontender, N/V intact, capillary refill less than 2 sec., dressing C /D/I, A&O x3, toes mobile Date Time Temp Pulse Resp B/P Pulse Ox O2 Delivery O2 Flow Rate FiO2 07/20/16 06:11 36.6 92 16 143/69 97 Room Air 07/20/16 00:21 Room Air 07/19/16 22:50 36.7 85 18 129/72 96 Room Air 07/19/16 16:15 Room Air 07/19/16 15:09 36.4 96 18 147/75 97 Room Air 07/19/16 12:40 36.5 93 18 148/81 97 Room Air 07/19/16 10:35 98 Room Air 07/19/16 08:23 36.4 100 16 142/82 98 Room Air 07/19/16 08:05 Room Air Assessment & Plan Assessment: POD #2 s/p Right TKA -PT/OT -dvt proph with JIM/SCD/ASA -plan for d/c home with Home PT, likely after PT today Hypertension GERD h/o skin cancer Discharge Planning Discharge Planning: home with home health DVT Prophylaxis: TEDs, SCDs, ASA Therapy: Physical Therapy
[2016-07-20] MEDS ORDERED: ACET-1138 PO (07:17)
[2016-07-20] MEDS: PANTOprazole SOD 40 MG TAB PO SCH (07:17)
[2016-07-20] MEDS ORDERED: CLC100 PO (07:17)
[2016-07-20] MEDS ORDERED: ASPEC81 PO (07:17)
[2016-07-20] MEDS: FERROUS GLUCONATE 324 MG TAB PO SCH (07:17)
[2016-07-20] MEDS ORDERED: CLB200 PO (07:17)
[2016-07-20] MEDS ORDERED: SENN-63 PO (07:17)
[2016-07-20] MEDS: ATORVASTATIN 40 MG TAB PO SCH (07:17)
[2016-07-20] MEDS ORDERED: RXC5 PO (07:17)
[2016-07-20] MEDS ORDERED: OXYSR10 PO (07:17)
[2016-07-20] MEDS: AMLODIPINE BESYLATE 5 MG TAB PO SCH (07:17)
[2016-07-20] MEDS: ASPIRIN 81 MG ECTAB PO SCH (07:17)
[2016-07-20] MEDS: DOCUSATE SODIUM 100 MG CAP PO SCH (07:17)
[2016-07-20] MEDS: CHOLECALCIFEROL 1000 INTER.UNIT TAB PO SCH (07:18)
[2016-07-20] MEDS: OXYCODONE HCL 10 MG TABCR (OXYCONTIN) PO SCH (07:18)
[2016-07-20] MEDS: CeleBREX 200 MG CAP PO SCH (07:18)
[2016-07-20] MEDS: MULTIVITAMIN TAB PO SCH (07:18)
[2016-07-20] MEDS: OXYCODONE HCL IR 5 MG TAB (IMMEDIATE RELEASE) PO PRN (08:29)
[2016-07-20 08:56] VITALS: BP 143/69; PULSE 92; TEMP 36.6; O2SAT 97
--- NOTE | 2016-07-20 17:28 | DISCHARGE SUMMARY ---
DISCHARGE DIAGNOSIS: Degenerative joint disease, right knee. SECONDARY DIAGNOSES: Hypertension, gastroesophageal reflux disease, history of skin carcinoma. CONSULTATIONS: Elisa Dutta PA-C/Marck Alston MD. COMPLICATIONS: None. BRIEF HISTORY OF PRESENT ILLNESS: As dictated in history and physical. HOSPITAL SUMMARY: The patient was admitted on the above date and had the above-noted surgery performed which he tolerated well. On the first postoperative day, patient was feeling well and pain was controlled and he had no complaints. Calves were soft and nontender, neurovascularly intact. Dressings were clean, dry and intact. Toes were mobile. Vital signs were stable. He was afebrile and hemoglobin was 13.8. He was started on physical therapy protocol and continued on DVT prophylaxis, pain management and medical management. By the second postoperative day, he continued to feel well and had good pain control and no complaints. Calves were soft and nontender, neurovascularly intact. Dressings were intact. Toes were mobile. Vital signs were stable. He was afebrile and was progressing well with his physical therapy and was remaining medically stable and it was felt he could be discharged to home. For further review, please see chart. LABORATORY AND X-RAY DATA: As per chart. DISCHARGE INSTRUCTIONS: The patient was discharged to home in satisfactory condition on 07/20/2016. DIET: Regular. ACTIVITY: Weightbearing as tolerated right lower extremity. Follow TKA instruction sheets and special care instructions as noted. Follow up with Dr. Hernandes in 2 weeks. The patient to call for appointment if one has not been made for you. DISCHARGE MEDICATIONS: Acetaminophen 1000 mg p.o. q. 8 hours, aspirin 81 mg p.o. b.i.d., Celebrex 200 mg p.o. b.i.d., Colace 100 mg p.o. b.i.d., OxyContin 10 mg p.o. q. 12 hours, oxycodone 5-10 mg p.o. q. 4 hours p.r.n., Senokot 1 tab p.o. b.i.d. Resume taking amlodipine 2.5 mg p.o. q.a.m., vitamin C 500 mg p.o. b.i.d., atorvastatin 40 mg p.o. at noon, vitamin D 2000 international units p.o. q.a.m., Nexium 40 mg p.o. q.a.m., potassium gluconate 595 mg 1 tab p.o. q.a.m., Ramipril 10 mg p.o. q.a.m. Stop taking fish oil caplets, glucosamine and chondroitin. MTDD
== END 2016-07-20 10:31 | disposition home health service (06) | DRG 470 ==
LOC: ENRESERVDT → ENRESERVTM → C.ACU 06:14 → C.3E 11:32
PROVIDERS: ADMIT Orthopaedic Surgery; ATTEND Orthopaedic Surgery
PROC: 0SRC0J9 Replacement of Right Knee Joint with Synthetic Substitute, Cemented, Open Approach (ICD-10-PCS; principal; 2016-07-18 08:15)
DX: M17.11 Unilateral primary osteoarthritis, right knee (principal); D72.829 Elevated white blood cell count, unspecified; T38.0X5A Adverse effect of glucocorticoids and synthetic analogues, initial encounter; I10 Essential (primary) hypertension; E78.00 Pure hypercholesterolemia, unspecified; E78.5 Hyperlipidemia, unspecified; K21.9 Gastro-esophageal reflux disease without esophagitis; N40.0 Benign prostatic hyperplasia without lower urinary tract symptoms; Z79.891 Long term (current) use of opiate analgesic; Z79.899 Other long term (current) drug therapy

== ENCOUNTER → 2016-08-17 | Outpatient (CLI) | payer OTHER ==
[~2016-08-17] MED LIST changes: +ACET-1138 PO; +ASPEC81 PO; +CLB200 PO; +CLC100 PO; -GLUC1CAP33 PO; -GLUCTAB7 PO; -LACTATED RINGER'S 1000ML 1,000 ML IV SCH; -LACTATED RINGER'S 1000ML 500 ML IV ONE; -OMEG10007 PO; +OXYSR10 PO; -ROPIVACAINE 5MG/ML 30 ML 150 MG, BUPIVACAINE/EPINEPHR 0.5% MPF 30 ML, KETOROLAC TROMETH... INFIL SCH; +RXC5 PO
--- NOTE | 2016-08-17 13:20 | DIAGNOSTIC IMAGING REPORT ---
ULTRASOUND RIGHT VENOUS DOPP LOWER EXT UNILAT CLINICAL HISTORY: Right lower leg pain COMPARISON STUDY: No previous studies for comparison. FINDINGS: Real-time and color flow Doppler imaging were performed. Flow was seen within the femoral, popliteal and calf veins with no intraluminal thrombus demonstrated. The saphenous vein is patent. There is a right popliteal cyst which dissects into the upper calf. IMPRESSION: 1. No evidence of right lower extremity DVT 2. Right popliteal cyst which dissects into the upper calf. Electronically signed by: Joaquin Nelson M.D. 08/17/2016 1:18 PM Dictated Date/Time: 08/17/2016 1:18 PM
== END | disposition home or self-care (01) ==
LOC: C.ULTRBC 12:40
PROVIDERS: ATTEND Physician Assistant
DX: M79.661 Pain in right lower leg (principal); M71.21 Synovial cyst of popliteal space [Baker], right knee

== ENCOUNTER → 2016-11-30 | Outpatient (CLI) | payer OTHER ==
[2016-11-30 09:37] LABS: BASO % 0.5 %; BASO ABS # 0.03 K/uL (0-0.2); COMPLETE YES; EOS % 3.6 %; HEMATOCRIT 46.6 % (42-52); IG% 0.3 %; LYMPH % 22.4 %; LYMPH ABS # 1.32 K/uL (1.2-3.4); MEAN CELL VOLUME 88.6 fL (80-100); MEAN CORPUSCULAR HEMOGLOBIN 30.4 pg (25-34); MEAN CORPUSCULAR HGB CONC 34.3 g/dl (32-36); MONO % 11.9 %; NEUT % 61.3 %; PLATELET COUNT 297 K/uL (130-400); RED BLOOD COUNT 5.26 M/uL (4.7-6.1); WHITE BLOOD COUNT 5.88 K/uL (4.8-10.8)
[2016-11-30 09:50] LABS: BLOOD UREA NITROGEN 14 mg/dl (7-18); BUN/CREATININE RATIO 14.6 (10-20); CALCIUM 9.5 mg/dl (8.5-10.1); CARBON DIOXIDE 23 mmol/L (21-32); CHLORIDE 109 mmol/L (98-107); CHOLESTEROL 128 mg/dl (0-200); CREATININE 0.98 mg/dl (0.60-1.40); GLUCOSE 118 mg/dl (70-99); SODIUM 139 mmol/L (136-145); TRIGLYCERIDES 94 mg/dl (0-150); VERY LOW DENSITY LIPOPROT CALC 19 mg/dl
[2016-11-30 09:53] LABS: HDL CHOLESTEROL 43 mg/dl; LDL CHOLESTEROL CALCULATED 66 mg/dl
[2016-11-30 10:23] LABS: ESTIMATED AVERAGE GLUCOSE 128 mg/dl; HA1C FLAG Normal (Normal)
== END | disposition home or self-care (01) ==
LOC: C.LAB 07:03
PROVIDERS: ATTEND Internal Medicine Geriatric Medicine
DX: E78.5 Hyperlipidemia, unspecified (principal); I10 Essential (primary) hypertension; D64.9 Anemia, unspecified; R73.9 Hyperglycemia, unspecified

== ENCOUNTER → 2017-06-20 | Outpatient (CLI) | payer OTHER ==
[2017-06-20 09:37] LABS: BASO % 0.6 %; BASO ABS # 0.04 K/uL (0-0.2); EOS % 2.9 %; EOS ABS # 0.19 K/uL (0-0.5); HEMATOCRIT 46.2 % (42-52); HEMOGLOBIN 15.8 g/dL (14.0-18.0); IG# 0.02 K/uL (0.00-0.02); LYMPH % 26.7 %; LYMPH ABS # 1.73 K/uL (1.2-3.4); MEAN CORPUSCULAR HEMOGLOBIN 31.5 pg (25-34); MEAN CORPUSCULAR HGB CONC 34.2 g/dl (32-36); MEAN PLATELET VOLUME 9.8 fL (7.4-10.4); MONO % 11.9 %; MONO ABS # 0.77 K/uL (0.11-0.59); NEUT % 57.6 %; NEUT ABS # 3.73 K/uL (1.4-6.5); PLATELET COUNT 311 K/uL (130-400); RED CELL DISTRIBUTION WIDTH CV 13.6 % (11.5-14.5); RED CELL DISTRIBUTION WIDTH SD 45.6 fL (36.4-46.3); WHITE BLOOD COUNT 6.48 K/uL (4.8-10.8)
[2017-06-20 10:28] LABS: BLOOD UREA NITROGEN 18 mg/dl (7-18); CALCIUM 9.1 mg/dl (8.5-10.1); CARBON DIOXIDE 25 mmol/L (21-32); CREATININE 0.95 mg/dl (0.60-1.40); GLUCOSE 110 mg/dl (70-99); POTASSIUM 3.8 mmol/L (3.5-5.1); SODIUM 140 mmol/L (136-145)
[2017-06-20 12:37] LABS: HEMOGLOBIN A1C 5.7 % (4.5-5.6)
== END | disposition home or self-care (01) ==
LOC: C.LAB 06:58
PROVIDERS: ATTEND Internal Medicine Geriatric Medicine
DX: I10 Essential (primary) hypertension (principal); R73.9 Hyperglycemia, unspecified; K21.9 Gastro-esophageal reflux disease without esophagitis; D64.9 Anemia, unspecified; M17.11 Unilateral primary osteoarthritis, right knee; R53.83 Other fatigue

== ENCOUNTER → 2017-07-26 | Outpatient (CLI) | payer OTHER ==
--- NOTE | 2017-07-26 19:55 | DIAGNOSTIC IMAGING REPORT ---
BONE SCAN 3 PHASE LIMITED CLINICAL HISTORY: 76 years-old Male presenting with TOTAL KNEE PAIN, R/O LOOSENING VS INFECTION. TECHNIQUE: Following the IV administration of 27.5 mCi of technetium 99m MDP, three-phase bone scan of the knees was performed. Anterior flow images as well as anterior and posterior blood pool phase images were acquired. Bone phase imaging of knees was performed at three hours in multiple obliquities. COMPARISON: Plain radiographs from 07/18/2016. FINDINGS: Initial flow images demonstrate symmetric initial perfusion of the lower extremities. Subtle increased perfusion to the right knee may be evident on the 12 seconds, 16 seconds, and 20 seconds anterior images. Photopenic defect in the region of the right knee corresponds with the total right knee arthroplasty. Blood flow imaging demonstrates asymmetric radiotracer activity surrounding the right knee prosthesis. Bone phase imaging again demonstrates focal radiotracer uptake surrounding the right knee prosthesis involving both the femoral and tibial components most pronounced in the lateral femoral condyle and both the medial and lateral tibial plateau. Focal radiotracer uptake is also apparent at the patella. No focal activity is evident in the left knee. IMPRESSION: 1. Findings suggestive of three-phase positive abnormal radiotracer uptake surrounding the right knee total prosthesis. This raises concern for loosening or infection. A sulfur colloid scan with and without a white blood cell scan could be considered to differentiate these 2 differential considerations. The report will be called/faxed according to standard departmental protocol. Electronically signed by: Sameer Serrato M.D. 07/26/2017 7:53 PM Dictated Date/Time: 07/26/2017 7:48 PM
== END | disposition home or self-care (01) ==
LOC: C.NUCL 15:02
PROVIDERS: ATTEND Orthopaedic Surgery
DX: Z96.651 Presence of right artificial knee joint (principal); R93.7 Abnormal findings on diagnostic imaging of other parts of musculoskeletal system

== ENCOUNTER → 2017-07-31 | Outpatient (CLI) | payer OTHER ==
[2017-07-31 09:26] LABS: HEMATOCRIT 46.6 % (42-52); MEAN CELL VOLUME 90.7 fL (80-100); MEAN CORPUSCULAR HEMOGLOBIN 31.1 pg (25-34); MEAN CORPUSCULAR HGB CONC 34.3 g/dl (32-36); MEAN PLATELET VOLUME 9.8 fL (7.4-10.4); PLATELET COUNT 307 K/uL (130-400); RED CELL DISTRIBUTION WIDTH CV 13.2 % (11.5-14.5); RED CELL DISTRIBUTION WIDTH SD 43.5 fL (36.4-46.3); WHITE BLOOD COUNT 6.71 K/uL (4.8-10.8)
== END | disposition home or self-care (01) ==
LOC: C.LAB 06:48
PROVIDERS: ATTEND Physician Assistant
DX: M25.461 Effusion, right knee (principal)

== ENCOUNTER → 2017-08-11 | Outpatient (CLI) | payer OTHER | END | disposition home or self-care (01) | LOC: C.LAB 06:57 | PROVIDERS: ATTEND Orthopaedic Surgery | DX: M25.461 Effusion, right knee (principal) ==

== ENCOUNTER → 2018-01-15 | Outpatient (CLI) | payer OTHER ==
[~2018-01-15] MED LIST changes: -ASPEC81 PO; +ASPI-320 PO
[2018-01-15 09:47] LABS: ALBUMIN 3.5 gm/dl (3.4-5.0); BLOOD UREA NITROGEN 14 mg/dl (7-18); CALCIUM 8.9 mg/dl (8.5-10.1); CARBON DIOXIDE 27 mmol/L (21-32); GLUCOSE 116 mg/dl (70-99); POTASSIUM 3.9 mmol/L (3.5-5.1); SODIUM 139 mmol/L (136-145); TOTAL PROTEIN 7.4 gm/dl (6.4-8.2)
[2018-01-15 09:48] LABS: ALKALINE PHOSPHATASE 63 U/L (45-117); ALT/SGPT 27 U/L (12-78); AST/SGOT 16 U/L (15-37); CHOLESTEROL 114 mg/dl (0-200); LDL CHOLESTEROL CALCULATED 55 mg/dl
== END | disposition home or self-care (01) ==
LOC: C.LAB 07:07
PROVIDERS: ATTEND Internal Medicine Geriatric Medicine
DX: I10 Essential (primary) hypertension (principal); E78.5 Hyperlipidemia, unspecified; R73.9 Hyperglycemia, unspecified; M17.11 Unilateral primary osteoarthritis, right knee